=== PATIENT | male | born 1970 | race Caucasian/White ===

== ENCOUNTER 2017-01-27 02:23 | Emergency (ER) | payer OTHER ==
[~2017-01-27] VITALS: Ht 172.7 cm; Wt 95.3 kg
[~2017-01-27 02:23] MED LIST: /TRAZ15TA PO; ATIV0.5T3 PO; FOLI1TAB86 PO; MORP15TA2 PO; OMEP40CA2 PO; TRAZ150T PO; VITA100T92 PO; VITATAB PO; ZOLO100T PO
[2017-01-27] MEDS ORDERED: ZOLO100T PO (02:47)
[2017-01-27 03:32] LABS: MEAN CORPUSCULAR HEMOGLOBIN 31.3 pg (27.0-33.0); MEAN CORPUSCULAR HGB CONC 34.8 g/dl (32.0-36.5); MEAN CORPUSCULAR VOLUME 89.8 fl (80.0-96.0); RED CELL DISTRIBUTION WIDTH 12.3 % (11.5-14.5)
[2017-01-27] MEDS ORDERED: diphenhydrAMINE INJ 50MG/ML VIAL (J1200) IV ONE (03:45)
[2017-01-27] MEDS ORDERED: NS 1,000 ML IV ONE (03:45)
[2017-01-27] MEDS ORDERED: cloNIDine 0.2 MG TAB PO ONE (03:45)
[2017-01-27] MEDS ORDERED: ONDANSETRON 4MG/2ML VIAL (J2405) IV ONE (03:45)
[2017-01-27 03:52] VITALS: BP 161/83
[2017-01-27 04:07] LABS: ALBUMIN 3.5 GM/DL (3.2-5.2); ALBUMIN/GLOBULIN RATIO 0.83 (1.00-1.93); ALKALINE PHOSPHATASE 169 U/L (45-117); ALT/SGPT 70 U/L (12-78); ANION GAP 10 MEQ/L (8-16); AST/SGOT 44 U/L (15-37); BILIRUBIN,DIRECT 0.2 MG/DL (0.0-0.2); BILIRUBIN,TOTAL 0.6 MG/DL (0.2-1.0); BLOOD UREA NITROGEN 7 MG/DL (7-18); CALCIUM LEVEL 8.7 MG/DL (8.5-10.1); CARBON DIOXIDE LEVEL 27 MEQ/L (21-32); CHLORIDE LEVEL 104 MEQ/L (98-107); CREATININE FOR GFR 0.93 MG/DL (0.70-1.30); GLOMERULAR FILTRATION RATE > 60.0 (>60); GLUCOSE, FASTING 163 MG/DL (70-105); POTASSIUM SERUM 4.5 MEQ/L (3.5-5.1); SODIUM LEVEL 141 MEQ/L (136-145); TOTAL PROTEIN 7.7 GM/DL (6.4-8.2)
[2017-01-27 04:34] LABS: METHADONE URINE NEGATIVE (NEGATIVE)
[2017-01-27] MEDS ORDERED: METOCLOPRAMIDE INJ 10MG/2ML VIAL (J2765) IV ONE (05:30)
[2017-01-27] MEDS ORDERED: CLONI1TA PO (05:54)
[2017-01-27] MEDS ORDERED: ZOFR4TAB3 PO (05:54)
[2017-01-27] MEDS ORDERED: REGL10TA6 PO (05:54)
[2017-01-27 06:18] VITALS: BP 170/91
--- NOTE | 2017-01-27 09:07 | ECGEPIP ---
Stationary ECG Study [facility] - ED Test Date: 2017-01-27 Pat Name: CARLO GALVAN Department: Room: - Gender: M [employer]: cece : 1970 Requested By: CHUN Valdes Order Number: [id number] Reading MD: Roxy Benjamin Measurements Intervals [place] Rate: 57 P: 16 SC: 159 QRS: -48 QRSD: 117 T: 10 QT: 400 QTc: 390 Interpretive Statements SINUS BRADYCARDIA WITH SINUS ARRHYTHMIA LEFT ANTERIOR FASCICULAR BLOCK NSTTW ABNORMALITY DECREASED RATE 05/09/13 Electronically Signed On 01-27-2017 9:06:42 EDT by Roxy Benjamin
== END 2017-01-27 06:27 | disposition home or self-care (01) ==
LOC: M ED 06:04
DX: F11.23 Opioid dependence with withdrawal (principal); F19.10 Other psychoactive substance abuse, uncomplicated
CPT/HCPCS: 80048; 80076; 80306; 84443; 85027; 93005; 96361; 96374; 96375; 99285; G0480; J1200; J2405; J2765